=== PATIENT | female | born 1930 | race Asian ===

== ENCOUNTER 2020-03-18 09:34 | Emergency (ER) | payer MEDICARE, OTHER ==
[~2020-03-18] VITALS: Ht 157.5 cm; Wt 61.4 kg
[~2020-03-18 09:34] MED LIST: ASPI-728 PO; HYPERTENSION MEDS
[2020-03-18] MEDS ORDERED: TIOT185 IH (09:51)
[2020-03-18] MEDS ORDERED: DEXT15SY8 PO (09:51)
[2020-03-18] MEDS ORDERED: IPRA4AER IH (09:51)
[2020-03-18] MEDS ORDERED: AMLO-258 PO (09:51)
[2020-03-18] MEDS ORDERED: ALBU8.5H8 IH (09:51)
[2020-03-18] MEDS ORDERED: MULT-1203 PO (09:51)
[2020-03-18] MEDS ORDERED: DICL2.5D8 OU (09:51)
[2020-03-18] MEDS ORDERED: XALA2.5OS OU (09:51)
[2020-03-18] MEDS ORDERED: CITA10TA99 PO (09:51)
[2020-03-18] MEDS ORDERED: ATOR10TA84 PO (09:51)
[2020-03-18 12:44] LABS: COVID AG,FIA SOURCE NASOPHARYNGEAL
[2020-03-18] MEDS ORDERED: ACETAMINOPHEN 325 MG TABLET PO ONE (14:00)
[2020-03-18 16:55] VITALS: BP 121/67
[2020-03-18 17:22] LABS: APPEARANCE,URINE CLEAR (CLEAR); BILIRUBIN,URINE NEGATIVE (NEGATIVE); GLUCOSE, URINE (UA) NEGATIVE (NEGATIVE); KETONES,URINE NEGATIVE (NEGATIVE); LEUKOCYTE ESTERASE ,URINE NEGATIVE (NEGATIVE); NITRATE,URINE NEGATIVE (NEGATIVE); OCCULT BLOOD,URINE NEGATIVE (NEGATIVE); PROTEIN,URINE POS 1+ (NEGATIVE); UROBILINOGEN,URINE 0.2 mg/dL (<=1.0)
[2020-03-18 17:29] LABS: RBC,URINE None Seen /HPF (0-2); WBC,URINE None Seen /HPF (0-5)
[2020-03-18 17:30] LABS: BACTERIA,URINE None Seen /HPF (None Seen); SQUAMOUS EPITHELIAL CELL,UR Rare /LPF (None Seen)
== END 2020-03-18 17:54 | disposition home or self-care (01) ==
LOC: EMS 09:45
DX: S09.90XA Unspecified injury of head, initial encounter (principal); R50.9 Fever, unspecified; U07.1 COVID-19; J44.9 Chronic obstructive pulmonary disease, unspecified; E11.9 Type 2 diabetes mellitus without complications; E78.00 Pure hypercholesterolemia, unspecified; I10 Essential (primary) hypertension; W01.0XXA Fall on same level from slipping, tripping and stumbling without subsequent striking against object, initial encounter; Y93.89 Activity, other specified; Y92.89 Other specified places as the place of occurrence of the external cause; Y99.8 Other external cause status
CPT/HCPCS: 70450; 72125; 81001; 82962; 87426; 99285; U0003; 51701